=== PATIENT | female | born 1995 | race Caucasian/White ===

== ENCOUNTER 2024-03-29 06:14 | Inpatient (IN) | payer OTHER ==
[2024-03-29] MEDS ORDERED: Ondansetron PF 4 MG/2 ML Vial IVP PRN ×2 (06:43→08:02)
[2024-03-29] MEDS ORDERED: Tranexamic Acid 1,000 MG/10 ML VIAL IVP PRN (06:43)
[2024-03-29] MEDS ORDERED: Diphenoxylate HCl/Atropine Tablet PO PRN ×2 (06:43)
[2024-03-29] MEDS ORDERED: Lidocaine 1% (PF) 30 ML VIAL SC PRN (06:43)
[2024-03-29] MEDS ORDERED: Promethazine HCl 25 MG/ML VIAL IM PRN ×2 (06:43→08:02)
[2024-03-29] MEDS ORDERED: hydrALAZINE 20 MG/ML VIAL SLOW IVP PRN ×2 (06:43→08:40)
[2024-03-29] MEDS ORDERED: Carboprost 250 MCG/ML AMP IM PRN (06:43)
[2024-03-29] MEDS ORDERED: fentaNYL 50 mcg/mL 1 mL Vial SLOW IVP PRN (06:43)
[2024-03-29] MEDS ORDERED: Ibuprofen 800 MG TAB PO PRN (06:43)
[2024-03-29] MEDS ORDERED: Acetaminophen 500 MG TAB PO PRN (06:43)
[2024-03-29] MEDS ORDERED: Misoprostol 200 MCG TAB PR PRN (06:43)
[2024-03-29] MEDS ORDERED: Methylergonovine 0.2 MG/ML VIAL IM PRN (06:43)
[2024-03-29] MEDS ORDERED: Oxytocin 30 units/NS 500 ML 500 ML IV SCH (06:45)
[2024-03-29] MEDS ORDERED: Lactated Ringer's 1,000 ML IV SCH (06:45)
[2024-03-29 06:59] LABS: Hematocrit 35.8 % (34.9-44.5); Hemoglobin 11.5 g/dL (12.0-15.5); Mean Corpuscular HGB CONC 32.1 g/dL (32.0-36.0); Mean Corpuscular Hemoglobin 26.6 pg (27.0-33.0); Mean Corpuscular Volume 82.9 fL (81.6-98.3); Mean Platelet Volume 12.4 fL (7.4-10.4); Platelet Count 273 10x3/uL (150-450); RBC Distribution Width 13.3 % (11.5-14.5); Red Blood Cell (RBC) Count 4.32 10x6/uL (3.90-5.03); White Blood Cell (WBC) Count 9.22 10x3/uL (3.5-10.5)
[2024-03-29] MEDS: fentaNYL/Ropivacaine Epidural 100 ML ONE (07:12)
[2024-03-29 07:22] VITALS: BMI 33.6
[2024-03-29 07:33] LABS: HBsAg Index 0.18 S/CO (0-0.99); Hep B Surf Ag - L&D Non-Reactive S/CO (NonReactive); Syphilis Antibody Nonreactive (Nonreactive); Syphilis Antibody Index 0.03 S/CO (<1.00 Non-Reactive)
[2024-03-29] MEDS ORDERED: Bupivacaine PF 0.5% 30 ML VIAL ONE (08:00)
[2024-03-29] MEDS ORDERED: Bupivacaine HCl 0.5%/Epinephrine 1:200,000/PF 30 ml Vial ONE (08:00)
[2024-03-29] MEDS ORDERED: Bupivacaine/Epinephrine 0.25% 30 ML VIAL ONE (08:00)
[2024-03-29] MEDS ORDERED: Moisturizing Cream (Eucerin) 113 GM JAR TOP PRN (08:02)
[2024-03-29] MEDS ORDERED: Acetaminophen 325 MG TAB PO PRN (08:02)
[2024-03-29] MEDS ORDERED: diphenhydrAMINE 50 MG/ML VIAL IVP PRN (08:02)
[2024-03-29] MEDS ORDERED: ePHEDrine Sulfate 50 MG/10 ML VIAL SLOW IVP PRN (08:02)
[2024-03-29] MEDS ORDERED: Naloxone HCl 0.4 mg/ml Vial IVP PRN ×2 (08:02)
[2024-03-29] MEDS ORDERED: Lactated Ringer's 500 ML IV PRN (08:09)
[2024-03-29] MEDS ORDERED: fentaNYL 2 mcg/Ropivacaine 0.2% Epidural 100 ML CADD EPIDURAL SCH (08:15)
[2024-03-29] MEDS ORDERED: Communication Order-Pharmacy FS SCH (08:15)
[2024-03-29] MEDS ORDERED: Milk Of Magnesia 30 ML UDCUP PO PRN (08:40)
[2024-03-29] MEDS ORDERED: Lanolin Ointment 7 GM TUBE TOP PRN (08:40)
[2024-03-29] MEDS ORDERED: Preparation H Ointment 28 GM TUBE PR PRN (08:40)
[2024-03-29] MEDS ORDERED: Bisacodyl 10 MG SUPP PR PRN (08:40)
[2024-03-29] MEDS ORDERED: Benzocaine-Menthol 82.5 ML CAN TOP PRN (08:40)
[2024-03-29] MEDS: fentaNYL 50 mcg/mL 1 mL Vial ONE (11:47)
[2024-03-29] MEDS: Docusate 100 MG CAP PO SCH (11:48)
[2024-03-29] MEDS: Prenatal Vitamin 1 TAB PO SCH (11:48)
[2024-03-29] MEDS: Ibuprofen 800 MG TAB PO SCH (14:31)
[2024-03-29] MEDS: Ferrous Sulfate 325 MG TAB PO SCH (17:06)
[2024-03-29] MEDS: traMADol HCl 50 MG TAB PO PRN (19:25)
[2024-03-30] MEDS: traMADol HCl 50 MG TAB PO PRN (01:58)
[2024-03-30 07:12] VITALS: BP 110/63; TEMP 97.7
[2024-03-30] MEDS: Boostrix 0.5 ML (Tdap) VIAL (>/=7 yrs of age) IM ONE (09:39)
== END 2024-03-30 11:54 | disposition home or self-care (01) | DRG 807 ==
LOC: CSHLD/OP 06:14 → CSHLD 06:42 → CSHPP 11:30
PROVIDERS: ADMIT Obstetrics & Gynecology; ATTEND Obstetrics & Gynecology
PROC: 10E0XZZ Delivery of Products of Conception, External Approach (ICD-10-PCS; principal; 2024-03-29)
DX: O70.1 Second degree perineal laceration during delivery (principal); Z37.0 Single live birth; Z3A.38 38 weeks gestation of pregnancy
CPT/HCPCS: 51702; 85027; 85461; 86780; 86850; 86900; 86901; 87340; 90384; 96372; 99285; J0665